=== PATIENT | female | born 1995 | race Caucasian/White ===

== ENCOUNTER 2025-05-07 22:52 | Inpatient (IN) | payer OTHER ==
[~2025-05-07] VITALS: Ht 167.6 cm; Wt 107.0 kg
[2025-05-07 09:54] VITALS: BP 109/72
[2025-05-07 23:00] VITALS: BP 109/72; BP 113/76; O2SAT 97
[2025-05-07] MEDS ORDERED: RINGERS SOLUTION,LACTATED 1,000 ML IV SCH (23:00)
[2025-05-07] MEDS ORDERED: FLUCONAZOLE 150 MG TABLET PO ONE (23:15)
[2025-05-08 00:48] LABS: BASO % 0.3 % (0.1-1.2); EOS # 0.37 (0.04-0.54); EOS % 2.7 % (0.7-7.0); LYMPH # 1.71 (1.18-3.74); LYMPH % 12.4 % (19.3-53.1); MEAN PLATELET VOLUME 11.30 fl (9.4-12.4); MONO # 0.92 (0.24-0.82); MONO % 6.7 % (4.7-12.5); NEUT # 10.52 (1.56-6.13); NEUT % 76.2 % (34.0-71.1); RED CELL DISTRIBUTION WIDTH 15.7 % (11.6-14.4)
[2025-05-08 00:49] LABS: URINE APPEARANCE Cloudy; URINE BILIRRUBIN Negative (NEGATIVE); URINE BLOOD Trace; URINE COLOR Yellow; URINE GLUCOSE Negative (NEGATIVE); URINE KETONE Trace (NEGATIVE); URINE LEUKOCYTE Large; URINE NITRATE Negative; URINE PROTEIN Negative (NEGATIVE); URINE UROBILINOGEN 0.2 E.U./dl
[2025-05-08 00:53] LABS: URINE EPITHELIAL CELLS 106.3 uL (0.0-38.8); URINE RBC 19.6 uL (0.0-20.8); URINE WBC 505.0 uL (0.0-23.2)
[2025-05-08 01:26] LABS: URINE BACTERIA > 9821.5 uL (0.0-1933); URINE CAST 0.73 uL (0.0-1.40); URINE YEAST MANY /hpf
[2025-05-08 01:49] LABS: ALT/SGPT 13.0 U/L (12-78); AST/SGOT 10.0 U/L (15-37); BILIRUBIN TOTAL 0.18 mg/dL (0.3-1.2); BUN CREA RATIO 14.0 (7.0-25.0); CREATININE SERUM 0.49 mg/dL (0.55-1.02); GFR 150.38; GLOBULINA 3.7 G/DL (2.4-3.5); GLUCOSE FASTING 104.0 mg/dL (65-100); LDH 128.0 U/L (84-246); OSMOLALITY SERUM 278.0 MOSM/KG (275-295)
[2025-05-08] MEDS ORDERED: PRENATAL TABLE1 EAC1 PO (02:31)
[2025-05-08 04:23] VITALS: BP 92/55
[2025-05-08 06:30] VITALS: BP 86/57; O2SAT 97
[2025-05-08] MEDS ORDERED: MORPHINE SULFATE 4 MG/ML CARTRIDGE IV PRN (07:30)
[2025-05-08] MEDS ORDERED: SOD FERRIC GLUC COMPLX/SUCROSE 125 MG in 0.9 % SODIUM CHLORIDE 100 ML IV SCH ×2 (12:00→17:00)
[2025-05-08 15:20] VITALS: BP 100/65; O2SAT 98
[2025-05-08 19:47] VITALS: BP 102/64
[2025-05-08 20:16] VITALS: BP 109/72
[2025-05-08] MEDS ORDERED: IRON FUM,PS/FOLIC/BCOMP,C NO.9 1 CAP CAPSULE PO SCH (21:59)
[2025-05-08] MEDS ORDERED: ASPIRIN 81 MG TAB.CHEW PO ONE (22:00)
[2025-05-08] MEDS ORDERED: IRON/V.C/V.B12/FOLIC A/VIT. E 1 CAPL CAPLET PO ONE (22:22)
[2025-05-08 23:16] VITALS: BP 107/73
[2025-05-09 00:09] LABS: URINE PROT QUANT 24HR 10.9 MG/DL
[2025-05-09 00:18] LABS: URINE PROT QUANT 24 HR 343.35 MG/24HR (42-225)
[2025-05-09 00:29] LABS: CREATININE SERUM 0.35 mg/dL (0.6-1.0)
[2025-05-09 01:52] LABS: CREATINE CLEARANCE 268.0 ML/MIN (97-137)
[2025-05-09 03:30] VITALS: BP 99/67
[2025-05-09 06:22] VITALS: BP 111/74; O2SAT 97
[2025-05-09 11:32] VITALS: BP 109/71
[2025-05-09 15:26] VITALS: BP 104/70; O2SAT 100
[2025-05-09] MEDS ORDERED: SOD FERRIC GLUC COMPLX/SUCROSE 62.5 MG/5 ML AMPUL IV ONE (15:47)
[2025-05-09] MEDS ORDERED: INTEGRA PLUS C1 EACH PO (18:37)
[2025-05-09] MEDS ORDERED: ADULT ASPIRIN81 MG PO (18:37)
[2025-05-09] MEDS ORDERED: NASAL MIST126 ML NASAL (18:39)
[2025-05-09] MEDS ORDERED: METRONIDAZOLE500 MG PO (18:39)
[2025-05-10 23:07] LABS: chla t Negative (Negative); neiss Negative (Negative)
== END 2025-05-09 18:46 | disposition home or self-care (01) | DRG 833 ==
LOC: OBS/DEL 22:52 → LDR 05-08 20:12 → OBS/DEL 05-08 20:12 → LDR 05-09 18:46
PROVIDERS: ADMIT General Practice; ATTEND General Practice
PROC: BY4FZZZ Ultrasonography of Third Trimester, Single Fetus (ICD-10-PCS; principal; 2025-05-08)
PROC: BU4CZZZ Ultrasonography of Uterus and Ovaries (ICD-10-PCS; 2025-05-08)
PROC: 4A1HXCZ Monitoring of Products of Conception, Cardiac Rate, External Approach (ICD-10-PCS; 2025-05-08)
DX: O26.893 Other specified pregnancy related conditions, third trimester (principal); R10.20 Pelvic and perineal pain unspecified side; O60.03 Preterm labor without delivery, third trimester; O10.913 Unspecified pre-existing hypertension complicating pregnancy, third trimester; O26.843 Uterine size-date discrepancy, third trimester; O36.8130 Decreased fetal movements, third trimester, not applicable or unspecified; O34.211 Maternal care for low transverse scar from previous cesarean delivery; Z3A.29 29 weeks gestation of pregnancy; O99.013 Anemia complicating pregnancy, third trimester; D64.9 Anemia, unspecified; O99.213 Obesity complicating pregnancy, third trimester; E66.812 Obesity, class 2; Z68.36 Body mass index [BMI] 36.0-36.9, adult

== ENCOUNTER 2025-06-17 20:10 | Inpatient (IN) | payer OTHER ==
[~2025-06-17] VITALS: Ht 167.6 cm; Wt 111.6 kg
[~2025-06-17 20:10] MED LIST: ADULT ASPIRIN81 MG PO; INTEGRA PLUS C1 EACH PO; METRONIDAZOLE500 MG PO; NASAL MIST126 ML NASAL; PRENATAL TABLE1 EAC1 PO
[2025-06-17] MEDS ORDERED: RINGERS SOLUTION,LACTATED 1,000 ML IV SCH (20:15)
[2025-06-17] MEDS ORDERED: CEFAZOLIN SODIUM 1,000 MG VIAL IV SCH (20:15)
[2025-06-17] MEDS ORDERED: BETAMETHASONE ACETATE,SOD PHOS 30 MG/5 ML ML IM ONE (20:30)
[2025-06-17 20:50] VITALS: BP 106/75
[2025-06-17 21:33] LABS: BASO % 0.3 % (0.1-1.2); EOS # 0.26 (0.04-0.54); EOS % 1.6 % (0.7-7.0); LYMPH # 1.86 (1.18-3.74); LYMPH % 11.8 % (19.3-53.1); MEAN PLATELET VOLUME 10.90 fl (9.4-12.4); MONO # 0.77 (0.24-0.82); MONO % 4.9 % (4.7-12.5); NEUT # 12.60 (1.56-6.13); NEUT % 79.8 % (34.0-71.1); RED CELL DISTRIBUTION WIDTH 17.8 % (11.6-14.4); URINE APPEARANCE Clear; URINE BILIRRUBIN Negative (NEGATIVE); URINE BLOOD Negative; URINE COLOR Yellow; URINE GLUCOSE Negative (NEGATIVE); URINE LEUKOCYTE Moderate; URINE NITRATE Negative; URINE PROTEIN Trace (NEGATIVE); URINE UROBILINOGEN 0.2 E.U./dl
[2025-06-17 21:34] LABS: URINE EPITHELIAL CELLS 33.8 uL (0.0-38.8); URINE RBC 10.1 uL (0.0-20.8); URINE WBC 133.3 uL (0.0-23.2)
[2025-06-17 21:49] LABS: URINE CAST 0.58 uL (0.0-1.40); URINE KETONE >=160 (NEGATIVE)
[2025-06-17] MEDS ORDERED: PRENATA CHEWAB1 EACH PO (21:52)
[2025-06-17] MEDS ORDERED: OXYTOCIN 10 UNITS/ML VIAL IV ONE (22:00)
[2025-06-17] MEDS ORDERED: ERYTHROMYCIN BASE OPHT 1GM EACH TUBE OP ONE (22:00)
[2025-06-17 22:04] LABS: ALT/SGPT 14.0 U/L (12-78); AST/SGOT 12.0 U/L (15-37); BILIRUBIN TOTAL 0.28 mg/dL (0.3-1.2); BUN CREA RATIO 18.0 (7.0-25.0); CREATININE SERUM 0.38 mg/dL (0.55-1.02); GFR 201.65; GLOBULINA 4.1 G/DL (2.4-3.5); GLUCOSE FASTING 102.0 mg/dL (65-100); LDH 140.0 U/L (84-246); OSMOLALITY SERUM 274.0 MOSM/KG (275-295)
[2025-06-17 22:06] LABS: INR 0.98
[2025-06-18] VITALS (9 sets, daily range): BP systolic 90–119; BP diastolic 27–75; O2SAT 97
[2025-06-18] MEDS ORDERED: KETOROLAC TROMETHAMINE 30 MG VIAL IV SCH (00:04)
[2025-06-18] MEDS ORDERED: KETOROLAC TROMETHAMINE 30 MG VIAL IV NR (00:15)
[2025-06-18] MEDS ORDERED: OXYTOCIN 1,000 ML IV SCH (00:15)
[2025-06-18] MEDS ORDERED: MORPHINE SULFATE 4 MG/ML CARTRIDGE IV PRN (00:15)
[2025-06-18] MEDS ORDERED: ONDANSETRON HCL 2 MG/ML VIAL IV PRN (00:15)
[2025-06-18] MEDS ORDERED: MAGNESIUM SULFATE IN WATER 0.04 GM/ML IV.SOLN IV SCH (00:30)
[2025-06-18] MEDS ORDERED: MAGNESIUM SULFATE IN WATER 4 GM/100 ML PIGGYBACK IV ONE ×2 (00:30→03:00)
[2025-06-18] MEDS ORDERED: MAGNESIUM SULFATE IN WATER 500 ML IV SCH (03:00)
[2025-06-18 03:03] LABS: BASO % 0.2 % (0.1-1.2); EOS # 0.03 (0.04-0.54); EOS % 0.2 % (0.7-7.0); LYMPH # 0.96 (1.18-3.74); LYMPH % 5.2 % (19.3-53.1); MEAN PLATELET VOLUME 11.40 fl (9.4-12.4); MONO # 0.31 (0.24-0.82); MONO % 1.7 % (4.7-12.5); NEUT # 16.93 (1.56-6.13); NEUT % 91.8 % (34.0-71.1); RED CELL DISTRIBUTION WIDTH 17.5 % (11.6-14.4)
[2025-06-18 03:14] LABS: ALT/SGPT 13.0 U/L (12-78); AST/SGOT 17.0 U/L (15-37); BILIRUBIN TOTAL 0.35 mg/dL (0.3-1.2); BUN CREA RATIO 16.0 (7.0-25.0); CREATININE SERUM 0.37 mg/dL (0.55-1.02); GFR 207.95; GLOBULINA 3.4 G/DL (2.4-3.5); GLUCOSE FASTING 160.0 mg/dL (65-100); LDH 204.0 U/L (84-246); OSMOLALITY SERUM 277.0 MOSM/KG (275-295)
[2025-06-18 08:52] LABS: BASO % 0.1 % (0.1-1.2); EOS # 0.01 (0.04-0.54); EOS % 0.1 % (0.7-7.0); LYMPH # 0.98 (1.18-3.74); LYMPH % 5.6 % (19.3-53.1); MEAN PLATELET VOLUME 11.10 fl (9.4-12.4); MONO # 0.46 (0.24-0.82); MONO % 2.6 % (4.7-12.5); NEUT # 15.75 (1.56-6.13); NEUT % 90.6 % (34.0-71.1); RED CELL DISTRIBUTION WIDTH 17.5 % (11.6-14.4)
[2025-06-18 09:50] LABS: ALT/SGPT 14.0 U/L (12-78); AST/SGOT 17.0 U/L (15-37); BILIRUBIN TOTAL 0.41 mg/dL (0.3-1.2); BUN CREA RATIO 15.0 (7.0-25.0); CREATININE SERUM 0.41 mg/dL (0.55-1.02); GFR 184.72; GLOBULINA 3.5 G/DL (2.4-3.5); GLUCOSE FASTING 138.0 mg/dL (65-100); LDH 169.0 U/L (84-246); OSMOLALITY SERUM 272.0 MOSM/KG (275-295)
[2025-06-18 16:32] LABS: ALT/SGPT 15.0 U/L (12-78); AST/SGOT 20.0 U/L (15-37); BILIRUBIN TOTAL 0.28 mg/dL (0.3-1.2); BUN CREA RATIO 10.0 (7.0-25.0); CREATININE SERUM 0.58 mg/dL (0.55-1.02); GFR 123.79; GLOBULINA 3.6 G/DL (2.4-3.5); GLUCOSE FASTING 122.0 mg/dL (65-100); LDH 205.0 U/L (84-246); OSMOLALITY SERUM 273.0 MOSM/KG (275-295)
[2025-06-18 22:07] LABS: ALT/SGPT 15.0 U/L (12-78); AST/SGOT 17.0 U/L (15-37); BILIRUBIN TOTAL 0.2 mg/dL (0.3-1.2); BUN CREA RATIO 12.0 (7.0-25.0); CREATININE SERUM 0.66 mg/dL (0.55-1.02); GFR 106.64; GLOBULINA 3.5 G/DL (2.4-3.5); GLUCOSE FASTING 142.0 mg/dL (65-100); LDH 189.0 U/L (84-246); OSMOLALITY SERUM 278.0 MOSM/KG (275-295)
[2025-06-19 03:20] VITALS: BP 101/65
[2025-06-19 07:40] VITALS: BP 114/78
[2025-06-19 12:30] VITALS: BP 108/63
[2025-06-19 16:34] VITALS: BP 113/76
[2025-06-19] MEDS ORDERED: OxyCODONE HCL ER 10MG TAB (OxyCONTIN) PO SCH (17:00)
[2025-06-19 20:00] VITALS: BP 115/78
[2025-06-20 00:35] VITALS: BP 111/76
[2025-06-20 08:51] VITALS: BP 111/73
[2025-06-20 16:00] VITALS: BP 138/83
[2025-06-20 20:00] VITALS: BP 124/74
[2025-06-21] VITALS: BP 137/85
[2025-06-21 08:11] VITALS: BP 120/65
== END 2025-06-21 18:16 | disposition home or self-care (01) | DRG 788 ==
LOC: LDR 20:10 → OB/GYN 20:10
PROVIDERS: ADMIT General Practice; ATTEND General Practice
PROC: 4A1HXCZ Monitoring of Products of Conception, Cardiac Rate, External Approach (ICD-10-PCS; 2025-06-17)
PROC: 10D00Z1 Extraction of Products of Conception, Low, Open Approach (ICD-10-PCS; principal; 2025-06-17 21:45)
DX: O60.14X0 Preterm labor third trimester with preterm delivery third trimester, not applicable or unspecified (principal); O11.4 Pre-existing hypertension with pre-eclampsia, complicating childbirth; O34.211 Maternal care for low transverse scar from previous cesarean delivery; Z3A.35 35 weeks gestation of pregnancy; Z37.0 Single live birth